=== PATIENT | male | born 1985 | race Caucasian/White ===

== ENCOUNTER 2018-09-12 23:00 | Emergency (ER) | payer OTHER ==
--- NOTE | 2018-09-13 01:10 | ER Document Report ---
ED General - General Chief Complaint: Chest Pain Stated Complaint: CHEST PAIN, SHORTNESS OF BREATH, NAUSEA Time Seen by Provider: 09/13/18 00:58 Primary Care Provider: HERO GRAFF [Primary Care Provider] - Follow up as needed Notes: Patient is a 33-year-old male that comes to the emergency department for chief complaint of shortness of breath, intermittent sharp pains across his chest, elevated blood pressure. He states that he feels constantly short of breath, he states that this is worse if he gets up and walks across the room (he will feel winded). He states for a split second he had a pain across the chest this evening but this resolved. Reports occasionally feeling lightheaded. No current chest pain. Denies injury, nausea vomiting, fever or chills. He smokes, reports rare alcohol, denies any recreational drugs except for marijuana. Past medical history of anxiety, previously on Zoloft and Wellbutrin but did not like how either so he stopped. He denies medical history otherwise. He states he has some sort of family history of cardiac disease but no specifics were given. TRAVEL OUTSIDE OF THE [place] IN LAST 30 DAYS: No - Related Data Allergies/Adverse Reactions: oxycodone [From OxyContin] Allergy (Verified 09/12/18 23:04) Past Medical History - General Information source: Patient - Social History Smoking Status: Current Every Day Smoker Smoking Education Provided: Yes - <3 min Frequency of alcohol use: Occasional Drug Abuse: Marijuana Lives with: Family Family History: Reviewed & Not Pertinent Psychiatric Medical History: Reports: Hx Anxiety Surgical Hx: Negative - Immunizations Immunizations up to date: Yes Hx Diphtheria, Pertussis, Tetanus Vaccination: Yes Review of Systems - Review of Systems Constitutional: See HPI EENT: No symptoms reported Cardiovascular: See HPI Respiratory: See HPI Gastrointestinal: No symptoms reported Genitourinary: No symptoms reported Male Genitourinary: No symptoms reported Musculoskeletal: No symptoms reported Skin: No symptoms reported Hematologic/Lymphatic: No symptoms reported Neurological/Psychological: See HPI Physical Exam - Vital signs Vitals: Temp Pulse Resp BP Pulse Ox 98.3 F 96 20 140/96 H 97 09/12/18 23:15 09/12/18 23:15 09/12/18 23:15 09/12/18 23:15 09/12/18 23:15 - Notes Notes: GENERAL: Alert, no signs of distress. HEAD: Normocephalic, atraumatic. EYES: Pupils equal, round, and reactive to light. Extraocular movements intact. ENT: Oral mucosa dry, tongue midline. Oropharynx unremarkable. Airway patent. NECK: Full range of motion. Supple. Trachea midline. LUNGS: Clear to auscultation bilaterally, no wheezes, rales, or rhonchi. No respiratory distress. HEART: Regular rate and rhythm. No murmur ABDOMEN: Soft, non-tender. Non-distended. Bowel sounds present in all 4 quadrants. GENITOURINARY: Deferred EXTREMITIES: Moves all 4 extremities spontaneously. No edema, normal radial and dorsalis pedis pulses bilaterally. No cyanosis. BACK: no cervical, thoracic, lumbar midline tenderness. No saddle anesthesia, normal distal neurovascular exam. Moves all extremities in full range of motion. NEUROLOGICAL: Alert and oriented x3. Normal speech. Cranial nerves II through XII grossly intact. PSYCH: Patient talks very rapidly and anxiously SKIN: Warm, dry, normal turgor. No rashes or lesions noted. Course - Re-evaluation Re-evalutation: Patient with ongoing symptoms for days. Patient is very anxious and speaks very rapidly. Lungs are clear, no tachycardia, vital signs unremarkable, physical examination unremarkable otherwise. EKG with no concerning findings. Troponin is negative. Chest x-ray unremarkable. CBC unremarkable. Chemistry does show low bicarbonate, urine does show lots of ketones. I discussed this with patient. Patient states he has been doing a combination of fasting and eating proteins only in a sort of modified keto diet. He states this is worked very well for him in the past and he has lost a lot of weight with it. Based on his timeline with the troponin I do not suspect ACS, I do not suspect pulmonary embolism based on his described symptoms and vital signs along with no reported risk factors, as I do not suspect dissection. Pain is only very fleeting, I got patient up and he ambulated without any obvious dyspnea or difficulty. Patient reporting lightheadedness but I suspect this is from acidosis. CK is not elevated. Discussed work-up with patient in great detail, answered questions to the best of my ability, provided with 2 L bolus of normal saline for his symptoms, recommended he stop his current diet/fasting because of his developing symptoms and acidosis. Patient states understanding and agreement. Discussed follow-up and return precautions. Patient states understanding and agreement with this as well. - Vital Signs Vital signs: Temp Pulse Resp BP Pulse Ox 98.3 F 96 19 152/84 H 97 09/12/18 23:15 09/12/18 23:15 09/13/18 03:01 09/13/18 03:00 09/13/18 03:01 - Laboratory Result Diagrams: 09/13/18 01:50 09/13/18 01:50 Laboratory results interpreted by me: 09/13/18 09/13/18 09/13/18 01:45 01:50 01:50 WBC 11.5 H Carbon Dioxide 17 L Anion Gap 21 H Calcium 10.4 H Total Protein 8.4 H Albumin 5.3 H Urine Ketones 80 H Urine Blood MODERATE H - EKG Interpretation by Me Additional EKG results interpreted by me: EKG shows sinus rhythm at a rate of 82, no T wave inversions or ST segment changes in consecutive leads, QTC of 435, DE interval of 140, normal axis. Discharge - Discharge Clinical Impression: Shortness of breath, Light-headedness, Metabolic acidosis Chest pain Qualifiers: Chest pain type: unspecified Qualified Code(s): R07.9 - Chest pain, unspecified Condition: Stable Disposition: HOME, SELF-CARE Additional Instructions: Your work-up is reassuring except for showing metabolic acidosis. You have been treated for this, I recommend you drink plenty of fluids, recom mend more balance with some carbohydrates in your diet as well. Follow-up with primary care for additional evaluation and management. Return if you worsen including passing out, vomiting, difficulty breathing, return to worsening pain in your chest, fever, or any other concerning or worsening symptoms. Forms: Treatment of Relative/Child [facility]errals: [facility] [Primary [facility] Provider] - Follow up as needed
[2018-09-13 02:10] LABS: ABSOLUTE BASOPHILS # (AUTO) 0.1 10^3/uL (0.0-0.2); ABSOLUTE NEUT (AUTO) 7.4 10^3/uL (1.7-8.2); BASOPHILS % (AUTO) 0.8 % (0-2); EOSINOPHILS % (AUTO) 0.4 % (0-6); HEMATOCRIT 46.1 % (37.9-51.0); HEMOGLOBIN 15.8 g/dL (13.5-17.0); LYMPHOCYTES % (AUTO) 26.3 % (13-45); MEAN CORPUSCULAR HEMOGLOBIN 29.3 pg (27.0-33.4); MEAN CORPUSCULAR HGB CONC 34.3 g/dL (32.0-36.0); MEAN CORPUSCULAR VOLUME 85 fl (80-97); MONOCYTES % (AUTO) 8.6 % (3-13); PLATELET COUNT 403 10^3/uL (150-450); RED CELL DISTRIBUTION WIDTH 13.1 % (11.5-14.0); SEGMENTED NEUTROPHILS % (AUTO) 63.9 % (42-78); TOTAL CELLS COUNTED % (AUTO) 100 %; WHITE BLOOD COUNT 11.5 10^3/uL (4.0-10.5)
--- NOTE | 2018-09-13 02:23 | RADIOLOGY REPORT (SQ) ---
EXAM DESCRIPTION: XR CHEST 2 VIEWS COMPLETED DATE/TME: 09/13/2018 01:06 CLINICAL HISTORY: 33 years, Male, shortness of breath, chest pain Comparison: None FINDINGS: No focal lung consolidation. No pleural effusion. No pneumothorax. Cardiac and mediastinal silhouette is unremarkable. No acute osseous abnormality. Soft tissues are unremarkable. IMPRESSION: No acute findings. No focal lung consolidation.
[2018-09-13 02:26] LABS: APPEARANCE,URINE CLEAR; BILIRUBIN,URINE NEGATIVE (NEGATIVE); COLOR,URINE STRAW; GLUCOSE, URINE NEGATIVE (NEGATIVE); KETONES,URINE 80 mg/dL (NEGATIVE); LEUKOCYTE ESTERASE,URINE NEGATIVE (NEGATIVE); NITRITE,URINE NEGATIVE (NEGATIVE); PROTEIN,URINE NEGATIVE (NEGATIVE); URINE SPECIFIC GRAVITY 1.009; UROBILINOGEN,URINE NEGATIVE mg/dL (<2.0)
[2018-09-13 02:28] LABS: ALANINE AMINOTRANSFERASE 23 U/L (21-72); ALBUMIN 5.3 g/dL (3.5-5.0); ALKALINE PHOSPHATASE 78 U/L (38-126); ASPARTATE AMINO TRANSFERASE 21 U/L (17-59); BILIRUBIN,DIRECT 0.4 mg/dL (0.0-0.4); BLOOD UREA NITROGEN 11 mg/dL (7-20); CALCIUM 10.4 mg/dL (8.4-10.2); GLUCOSE 83 mg/dL (75-110); POTASSIUM 4.5 mmol/L (3.6-5.0); TOTAL PROTEIN 8.4 g/dL (6.3-8.2)
[2018-09-13 02:29] LABS: URINE AMPHETAMINES SCREEN NEGATIVE; URINE BARBITURATES SCREEN NEGATIVE; URINE BENZODIAZEPINES SCREEN NEGATIVE; URINE COCAINE SCREEN NEGATIVE; URINE MARIJUANA (THC) SCREEN UNCONFIRMED POSITIVE; URINE METHADONE SCREEN NEGATIVE; URINE PHENCYCLIDINE SCREEN NEGATIVE
[2018-09-13 02:33] LABS: CARBON DIOXIDE 17 mmol/L (22-30); CHLORIDE 103 mmol/L (98-107); SODIUM 140.8 mmol/L (137-145)
[2018-09-13 02:47] LABS: ANION GAP 21 (5-19)
[2018-09-13] MEDS ORDERED: NORMAL SALINE 1000 ML 1,000 ML IV ONE ×2 (02:48)
[2018-09-13 03:48] VITALS: BP 152/84
--- NOTE | 2018-09-13 07:50 | EKG REPORT ---
SEVERITY:- BORDERLINE ECG - SINUS RHYTHM NONSPECIFIC ST-T CHANGES- INFERIOR LEADS : Confirmed by: Yinka Sagastume MD 13-Sep-2018 07:49:20
== END 2018-09-13 04:07 | disposition home or self-care (01) ==
LOC: ER 23:00
DX: R07.9 Chest pain, unspecified (principal); E87.2 Acidosis; R42 Dizziness and giddiness; R11.0 Nausea; R06.02 Shortness of breath; F41.9 Anxiety disorder, unspecified; F17.200 Nicotine dependence, unspecified, uncomplicated
CPT/HCPCS: 93005; 99285; 96360; 36415; 82550; 85025; 80053; 81001; 84484; 80307; 71046; 93010; J7030